=== PATIENT | female | born 1945 | race Hispanic/Latino ===

== ENCOUNTER 2016-06-19 05:15 | Emergency (ER) | payer MEDICARE, OTHER ==
[2016-06-19 05:24] VITALS: RESP 20; TEMP 97.8; O2SAT 97
--- NOTE | 2016-06-19 06:13 | C.PDOC ---
History Of Present Illness 70 y/o female presents to ED with complaint of pressure to her left ear, which woke her up from sleep. Patient also notes concern over not taking blood pressure medications for 1 week. Reports cold symptoms and nasal congestion for the past week, currently on cold medication prescribed by PMD. Patient states she took BP meds prior to arrival. Otherwise, denies ringing sensation, fever, chills, headache, dizziness, nausea, vomiting, or other associated symptoms. Time Seen by Provider: 06/19/16 05:27 Chief Complaint (Nursing): ENT Problem History Per: Patient History/Exam Limitations: no limitations Onset/Duration Of Symptoms: Hrs Current Symptoms Are (Timing): Still Present Recent travel outside of the [place]: No Past Medical History Reviewed: Historical Data, Nursing Documentation, Vital Signs Vital Signs: Last Vital Signs Temp 97.8 F 06/19/16 05:22 Pulse 76 06/19/16 05:22 Resp 20 06/19/16 05:22 BP 190/98 H 06/19/16 05:22 Pulse Ox 97 06/19/16 06:26 - Medical History PMH: Asthma, HTN Family History: States: Unknown Family Hx - Social History Hx Alcohol Use: No Hx Substance Use: No - Immunization History Hx Tetanus Toxoid Vaccination: No Hx Influenza Vaccination: No Hx Pneumococcal Vaccination: No Review Of Systems Constitutional: Negative for: Fever, Chills ENT: Positive for: Ear Pain, Nose Congestion. Negative for: Throat Pain Cardiovascular: Negative for: Chest Pain Respiratory: Negative for: Cough, Shortness of Breath, Wheezing Gastrointestinal: Negative for: Nausea, Vomiting, Abdominal Pain, Diarrhea Musculoskeletal: Negative for: Neck Pain Skin: Negative for: Rash Neurological: Negative for: Weakness, Numbness, Headache, Dizziness Physical Exam - Physical Exam Appears: Non-toxic, No Acute Distress Skin: Normal Color, Warm, Dry Head: Atraumatic, Normacephalic Eye(s): bilateral: Normal Inspection, PERRL, EOMI Ear(s): Bilateral: Normal Nose: Normal Oral Mucosa: Moist Throat: Normal, No Erythema, No Exudate Neck: Normal ROM, Supple Chest: Symmetrical Cardiovascular: Rhythm Regular Respiratory: Normal Breath Sounds, No Rales, No Rhonchi, No Wheezing Gastrointestinal/Abdominal: Soft, No Tenderness Back: Normal Inspection Extremity: Normal ROM, Capillary Refill (< 2 sec. ) Neurological/Psych: Oriented x3, Normal Speech, Normal Cognition, Normal Motor, Normal Sensation Gait: Steady ED Course And Treatment O2 Sat by Pulse Oximetry: 97 (RA) Pulse Ox Interpretation: Normal Progress Note: Blood pressure improved in ER 166/74, pt is now asymptomatic in NAD. On reassessment, patient is resting comfortably, and is in no acute distress. Patient instructed to follow up with clinic/PMD within 1-2 days. Pt understands to continue her BP meds as prescribed by PMD and to continue cough syrup and zyrtec PO. Pt understands to return to ER if headache, dizziness, weakness or worse Reevaluation Time: 06:44 Reassessment Condition: Improved Disposition Counseled Patient/Family Regarding: Diagnosis, Need For Followup, Rx Given - Disposition Disposition: HOME/ ROUTINE Disposition Time: 06:26 Condition: STABLE Additional Instructions: Please follow up with PMD Continue BP meds Continue cough syrup and zyrtec Return to ER if dizziness, headache, weakness or worse Prescriptions: Cetirizine HCl [Zyrtec] 10 mg PO DAILY #20 capsule Forms: General Discharge Instructions - Clinical Impression Clinical Impression: Otalgia of left ear - PA / [employer] / Resident Statement MD/DO has reviewed & agrees with the documentation as recorded. - Scribe Statement The provider has reviewed the documentation as recorded by the Dayna Obrien Provider Scribe Attestation: All medical record entries made by the Scribe were at my direction and personally dictated by me. I have reviewed the chart and agree that the record accurately reflects my personal performance of the history, physical exam, medical decision making, and the department course for this patient. I have also personally directed, reviewed, and agree with the discharge instructions and disposition.
[2016-06-19 06:40] VITALS: BP 166/74; PULSE 80
== END 2016-06-19 06:48 | disposition home or self-care (01) ==
LOC: C.ER 05:15
DX: H92.02 Otalgia, left ear (principal)

== ENCOUNTER 2018-01-22 08:49 | Emergency (ER) | payer MEDICARE, OTHER ==
[2018-01-22 09:08] VITALS: TEMP 98; BMI 36.3
--- NOTE | 2018-01-22 10:45 | C.PDOC ---
History Of Present Illness 72 y/o female with a PMHx of asthma presents to the ED complaining of pain to the right lower extremity, worsening for the past 3 days. Patient states the pain worsens at night. She is able to ambulate and bear weight, with pain. Otherwise she denies any numbness, tingling, extremity weakness, or calf pain. Time Seen by Provider: 01/22/18 09:54 Chief Complaint (Nursing): Lower Extremity Problem/Injury History Per: Patient History/Exam Limitations: no limitations Onset/Duration Of Symptoms: Days (x3) Current Symptoms Are (Timing): Still Present Past Medical History Reviewed: Historical Data, Nursing Documentation, Vital Signs Vital Signs: Last Vital Signs Temp 98 F 01/22/18 09:06 Pulse 72 01/22/18 09:06 Resp 18 01/22/18 09:06 BP 182/104 H 01/22/18 09:06 Pulse Ox 95 01/22/18 09:06 - Medical History PMH: Asthma, HTN Family History: States: Unknown Family Hx - Social History Hx Alcohol Use: No Hx Substance Use: No - Immunization History Hx Tetanus Toxoid Vaccination: No Hx Influenza Vaccination: No Hx Pneumococcal Vaccination: No Review Of Systems Except As Marked, All Systems Reviewed And Found Negative. Constitutional: Negative for: Fever, Chills Musculoskeletal: Positive for: Leg Pain (RLE) Skin: Negative for: Rash, Lesions Neurological: Negative for: Weakness, Numbness Physical Exam - Physical Exam Appears: Well, Non-toxic, No Acute Distress Skin: Warm, Dry Head: Atraumatic, Normacephalic Eye(s): bilateral: Normal Inspection Chest: Symmetrical Respiratory: No Accessory Muscle Use, Other (speaking in full sentences) Extremity: Normal ROM, No Tenderness, No Calf Tenderness, Swelling (+1 pitting edema to the lower extremities), Other (Varicosities noted to the right lower extremity) Pulses: Left Dorsalis Pedis: Normal, Right Dorsalis Pedis: Normal Neurological/Psych: Oriented x3 ED Course And Treatment O2 Sat by Pulse Oximetry: 95 (RA) Pulse Ox Interpretation: Normal Medical Decision Making Medical Decision Making: Impression: RLE pain, r/o DVT Plan: --Doppler study ordered 11:10 Doppler US is (-) for DVT, patient notified. Disposition Counseled Patient/Family Regarding: Studies Performed, Need For Followup, Rx Given - Disposition Referrals: Elamir,Avila, MD [Staff Provider] - Disposition: HOME/ ROUTINE Disposition Time: 11:26 Condition: STABLE Prescriptions: Naproxen [Naprosyn] 1 tab PO BID PRN #25 tab PRN Reason: Pain Instructions: [facility] Forms: [facility] ([facility]wana), General Discharge Instructions - POA Present On Arrival: None - Clinical Impression Clinical Impression: Leg pain, right - Scribe Statement The provider has reviewed the documentation as recorded by the Dayna Dowd Provider Attestation: All medical record entries made by the Dayna were at my direction and personally dictated by me. I have reviewed the chart and agree that the record accurately reflects my personal performance of the history, physical exam, medical decision making, and the department course for this patient. I have also personally directed, reviewed, and agree with the discharge instructions and disposition.
[2018-01-22] MEDS ORDERED: Naproxen 550 mg Tab PO STA (11:11)
[2018-01-22] MEDS ORDERED: Naproxen 550 mg Tab PO ONE (11:19)
[2018-01-22 11:33] VITALS: BP 169/89; PULSE 84; RESP 16; O2SAT 99
--- NOTE | 2018-01-23 12:08 | VASCLAB ---
Date of service: 01/22/2018 PROCEDURE: Right Lower Extremity Venous Duplex Exam. HISTORY: r/o dvt PRIORS: None. TECHNIQUE: Right common femoral, femoral, popliteal and posterior tibial, peroneal and great saphenous veins were evaluated. Flow was assessed with color Doppler, compressibility, assessment of phasic flow and augmentation response. Report prepared by FLORIDALMA Pugh, RVT FINDINGS: RIGHT: 1. Common Femoral Vein: 1.1. Compressibility - Fully compressible: Thrombus - None: Flow - Phasic: Augmentation -Normal: Reflux - None. 2. Femoral Vein: 2.1. Compressibility - Fully compressible: Thrombus - None: Flow - Phasic: Augmentation -Normal: Reflux - None. 3. Popliteal Vein: 3.1. Compressibility - Fully compressible: Thrombus - None: Flow - Phasic: Augmentation -Normal: Reflux - None. 4. Posterior Tibial Vein: 4.1. Compressibility - Fully compressible: Thrombus - None: Flow - Phasic: Augmentation -Normal: Reflux - None. 5. Peroneal Vein: 5.1. Compressibility - Fully compressible: Thrombus - None: Flow - Phasic: Augmentation -Normal: Reflux - None. 6. Great Saphenous Vein: 6.1. Compressibility - Fully compressible: Thrombus -None: Flow - Phasic: Augmentation - Normal: Reflux - None. OTHER FINDINGS: IMPRESSION: No evidence of deep or superficial vein thrombosis of the right lower extremity with excellent venous flow. Normal valve function noted of the right side. Normal venous flow noted in the left common femoral vein.
== END 2018-01-22 11:32 | disposition home or self-care (01) ==
LOC: C.ER 08:49
DX: M79.604 Pain in right leg (principal); I10 Essential (primary) hypertension